=== PATIENT | female | born 1945 | race Caucasian/White ===

== ENCOUNTER → 2017-05-07 | Outpatient (CLI) | payer OTHER ==
[~2017-05-07] MED LIST: ALBUTEROL20 ml INH; ATENOLOL PO; BYSTOLIC10 MG PO; CATAPRES0.1 M1; CELEXA PO; CYMBALTA30 MG PO; DIAZEPAM PO; HYDROCHLOROTH12.5 M1 PO; HYDROCODON-ACE1 EAC9 PO; HYDROCODONE-APA1 T33 PO; LIPITOR PO; LISINOPRIL PO; MIDRIN CAPSULE1 CAP PO; NITROSTAT0.4 MG SL; NORVASC PO; OMEPRAZOLE40 M1 PO; PHENERGAN25 M1; POTASSIUM CHLO10 ME1 PO; PREDNISONE10 MG PO; TEMAZEPAM PO; TUDORZA PRESS400 MCG; VITAMIN B12 INJ; VITAMIN B650 MG; VITAMIN D250000 UNIT PO; WELLBUTRIN XL PO
--- NOTE | ~2017-05-07 | CT13 ---
[facility] A Service of [facility] & [facility] RADIOLOGY TEXT RESULTS PATIENT: MARLENA BRAMBILA LOCATION: [facility] : 49 UNIT #: [id number] AGE: [address]: Niles Paulino MD SEX: F ORDER DR: [id number] [facility] [address] [place], [place] [address] [id number] O MR#: [id number] [facility] #: [id number] NAME: MARLENA BRAMBILA. : 1945 SEX: F STUDY DATE/TIME: 05/07/2017 15:08 UNIT: [facility] ROOM: STUDY DESCRIPTION: CT Angio Abdomen Attending Physician: Niles Paulino M.D. Referring Physician: Niles Paulino M.D. Ordering Physician: Niles Paulino M.D. Primary Care Physician: Idalmis Asher A.P.R.N. MEDICAL IMAGING REPORT This report is preliminary unless electronic signature is present REVISED REPORT SEE ADDENDUM EXAM CT abdomen and angiographic reconstructions INDICATION Evaluate renal artery stenosis. Incontinence for 3-4 weeks. COMPARISON None. Comparison to a chest CT 08/19/2013. TECHNIQUE The patient given 100 mL of Isovue-370 and spiral imaging was performed through the abdomen. 3D obstructions of the arterial structures and aorta were generated. This CT exam was performed with one or more of the following radiation dose reduction techniques: Automatic exposure control, adjustment of mA and/or kV according to patient size, and iterative reconstruction. FINDINGS In the right lung bases. A lobular irregular 2.2 cm mass which has developed since 08/19/2013 and this is very suspicious for a primary malignancy of the lung. Please note there is a series of unenhanced images that were done before the contrasted study. There is also a set of 90-second delayed images. The liver, gallbladder, spleen, pancreas, adrenal glands and kidneys are normal except for 12 cyst in the left kidney. New small hiatal hernia. The aorta is normal in size. There is no adenopathy. The visualized bowel is normal. There are some degenerative in the lumbar spine. AORTA FINDINGS: The aorta is normal in size. The celiac artery and SMA are widely patent. There are single renal arteries bilaterally and there STS. [facility] A Service of [facility] & [facility] RADIOLOGY TEXT RESULTS PATIENT: MARLENA BRAMBILA LOCATION: [facility] : [birth year] UNIT #: [id number] AGE: [address]: Niles Paulino MD SEX: F ORDER DR: is no stenosis on the right. The left renal artery has a very mild narrowing of the proximal 1 cm. This is about a 25% diameter stenosis. IMPRESSION 1. There is a new 2.3 cm irregular mass in the right lower lobe strongly suspicious for primary malignancy of the lung. 2. Right a single renal arteries bilaterally. The right lung is normal. The left has mild narrowing approximately 1 cm. The narrowing is about 25%. 3. Otherwise, the study is negative. 4. I have placed a call Dr. Paulino's office and I am trying to communicate the results to him by phone. STAT * RESULT Dictated by... Avery Bonner M.D. THIS IS AN ELECTRONICALLY VERIFIED REPORT Avery Bonner M.D. at 05/08/2017 1:26 PM ALIZA/guzman TD: 05/08/2017 10:18 JOB #: [id number] ADDENDUM I discussed the findings with Dr. Paulino's nurse practitioner. Dictated by... Avery Bonner M.D. THIS IS AN ELECTRONICALLY VERIFIED REPORT Avery Bonner M.D. at 05/16/2017 6:03 AM ALIZA/aury TD: 05/08/2017 11:17 JOB #: [id number] CC: Taty/invision Please Delete MEDICAL IMAGING REPORT Page 1 of 1 COPY
[2017-05-07 22:35] LABS: POC - CREATININE 0.72 mg/dL (0.44-1.03); POC - GFR >60.0 mL/min (>60)
== END | disposition home or self-care (01) ==
LOC: CCAT 14:32
PROVIDERS: Surgery Vascular Surgery
DX: I70.1 Atherosclerosis of renal artery (principal); R91.8 Other nonspecific abnormal finding of lung field; J98.4 Other disorders of lung
CPT/HCPCS: 74175; 82565; Q9967

== ENCOUNTER → 2017-05-14 | Outpatient (CLI) | payer OTHER ==
--- NOTE | ~2017-05-14 | CT57 ---
[facility] A Service of [facility] & [facility] RADIOLOGY TEXT RESULTS PATIENT: MARLENA BRAMBILA [facility] : 47 UNIT #: [id number] AGE: [address]: Gene Disla MD SEX: F ORDER DR: [id number] [place] [id number] [facility] [place], [place] [address] [id number] O MR#: [id number] Acc #: [id number] NAME: MARLENA BRAMBILA : 1945 SEX: F STUDY DATE/TIME: 05/14/2017 14:47 UNIT: [facility] ROOM: STUDY DESCRIPTION: CT Chest Wo Cont Attending Physician: Gene Disla M.D. Referring Physician: Gene Disla M.D. Ordering Physician: Gene Disla M.D. Primary Care Physician: Idalmis Asher A.P.R.N. MEDICAL IMAGING REPORT This report is preliminary unless electronic signature is present EXAM CT chest without contrast INDICATIONS Pulmonary nodule followup. PROCEDURE Unenhanced CT of the chest. This CT exam was performed with one or more of the following radiation dose reduction techniques: automatic exposure control, adjustment of mA and/or kV according to patient size, and iterative reconstruction. COMPARISON 08/19/2013 FINDINGS There are new loculated nodules in the right lung. There is a 1.9 cm nodule posterior right lower lobe, a 1.9 cm nodule in the anterior right lower lobe, and a 1.5 cm nodule lateral right upper lobe. These are new compared with the previous study. There is a new mass along the posterior right perihilar region that measures up to 2.8 cm. This is inseparable from the posterior margin of the right hilar structures. No pathologically enlarged mediastinal nodes are seen. No acute findings in the included upper abdomen. Thyroid nodules not significantly changed from previous study. No aggressive appearing bone lesion. IMPRESSION 1. New posterior right perihilar mass measuring 2.8 cm suspicious for malignancy. There are 3 new nodules in the right lung as detailed above suspicious for pulmonary metastases. PET scan may be helpful in evaluating for the full extent of disease. If desired clinically. [facility] A Service of [facility] & [facility] RADIOLOGY TEXT RESULTS PATIENT: MARLENA BRAMBILA LOCATION: [facility] : 49 UNIT #: [id number] AGE: [address]: Gene Disla MD SEX: F ORDER DR: 2. 8 mm indeterminate high-attenuation lesion in the left kidney probably a proteinaceous or hemorrhagic cyst. Consider evaluation with renal protocol MRI or CT. Dictated by... Jesse Schumacher M.D. THIS IS AN ELECTRONICALLY VERIFIED REPORT Jesse Schumacher M.D. at 05/15/2017 3:29 PM Fermin TD: 05/14/2017 17:56 JOB #: [id number] MEDICAL IMAGING REPORT Page 1 of 1 COPY
== END | disposition home or self-care (01) ==
LOC: CCAT 14:05
DX: R91.1 Solitary pulmonary nodule (principal); R91.8 Other nonspecific abnormal finding of lung field
CPT/HCPCS: 71250

== ENCOUNTER → 2017-06-01 | Outpatient (CLI) | payer OTHER ==
[~2017-06-01] VITALS: Ht 162.6 cm; Wt 57.8 kg
--- NOTE | ~2017-06-01 | CR71 ---
[facility] A Service of [facility] RADIOLOGY TEXT RESULTS PATIENT: MARLENA BRAMBILA LOCATION: [facility] : 47 UNIT #: [id number] AGE: [address]: Gene Disla MD SEX: F ORDER DR: [id number] [facility] [address] [place], [place] [address] [id number] O MR#: [id number] Acc #: [id number] NAME: MARLENA BRAMBILA : 1945 SEX: F STUDY DATE/TIME: 06/01/2017 11:31 UNIT: [facility] ROOM: STUDY DESCRIPTION: CR Chest Single View Attending Physician: Gene Disla M.D. Ordering Physician: Dominic Hart M.D. Primary Care Physician: Idalmis Asher A.P.R.N. MEDICAL IMAGING REPORT This report is preliminary unless electronic signature is present EXAM AP portable chest. DATE 06/01/2017 HISTORY Stasis post right lung biopsy today with shortness of breath. Lung mass. COMPARISON PA and lateral chest radiograph 10/30/2008, CT-guided right lung mass biopsy 06/01/[address] chest without contrast 05/14/2017. FINDINGS Two right lung nodules are identified, one in the upper lobe, another in the lower lobe. A third nodule seen on the previous CT chest may be obscured by the cardiac silhouette. There is abnormal asymmetric enlargement and increased density in the right hilum consistent with mass lesion seen at that location on previous CT chest. Left lung remains clear. Heart size within normal limits. Left chest wall pacemaker is in place with leads extending into the expected location of the right atrium and right ventricle. There is no visible post biopsy pneumothorax. IMPRESSION 1. No visible pneumothorax status post right lung biopsy earlier today. 2. Right hilar mass and two dominant right lung nodules correspond to the CT chest findings of 05/14/2017. Dictated by... Zaynab Acosta M.D. [facility] A Service of [facility] RADIOLOGY TEXT RESULTS PATIENT: MARLENA BRAMBILA LOCATION: [facility] : 47 UNIT #: [id number] AGE: [address]: Gene Disla MD SEX: F ORDER DR: THIS IS AN ELECTRONICALLY VERIFIED REPORT Zaynab Acosta M.D. at 06/02/2017 8:56 AM JOSE/tobin TD: 06/01/2017 16:06 JOB #: [id number] MEDICAL IMAGING REPORT Page 1 of 1 COPY
--- NOTE | ~2017-06-01 | CT134 ---
[facility] A Service [facility] RADIOLOGY TEXT RESULTS PATIENT: MARLENA BRAMBILA LOCATION: [facility] : 49 UNIT #: [id number] AGE: [address]: Gene Disla MD SEX: F ORDER DR: [id number] [facility] [address] [place], [place] [address] [id number] O MR#: [id number] Acc #: [id number] NAME: MARLENA BRAMBILA : 1945 SEX: F STUDY DATE/TIME: 06/01/2017 9:32 UNIT: [facility] ROOM: STUDY DESCRIPTION: CT Guide Attending Physician: Gene Disla M.D. Ordering Physician: Gene Disla M.D. Primary Care Physician: Idalmis Asher A.P.R.N. MEDICAL IMAGING REPORT This report is preliminary unless electronic signature is present EXAM CT guided needle biopsy right lung mass, 06/01/2017 HISTORY Right lung masses TECHNIQUE This CT exam was performed with one or more of the following radiation dose reduction techniques: automatic exposure control, adjustment of mA and/or kV according to patient size, and iterative reconstruction. PROCEDURE Informed consent was obtained from the patient. Fentanyl and Versed were administered for IV conscious sedation with hemodynamic monitoring provided by the nursing staff throughout the procedure. Using CT guidance, an INRAD needle gun was used to obtain core specimens from a right posterior perihilar mass. Specimens were sent for pathologic evaluation. There was no immediate complication. The patient tolerated the procedure well. Total sedation time approximately [address]-guided core biopsy of a left perihilar lung mass. Conscious sedation as above. Dictated by... Dominic Hart M.D. THIS IS AN ELECTRONICALLY VERIFIED REPORT Dominic Hart M.D. at 06/05/2017 4:54 PM YASIR/aury TD: 06/01/2017 16:10 JOB #: [id number] [facility] A Service [facility] RADIOLOGY TEXT RESULTS PATIENT: MARLENA BRAMBILA LOCATION: [facility] #: [id number] : 49 UNIT #: [id number] AGE: [address]: Gene Disla MD SEX: F ORDER DR: MEDICAL IMAGING REPORT Page 1 of 1 COPY
[2017-06-01 08:29] LABS: HEMATOCRIT 40.9 % (35.0-45.0); MEAN CELL VOLUME 90.8 FL (83-96); MEAN CORPUSCULAR HGB CONC 34.1 g/dL (30-36); MEAN PLATELET VOLUME 7.2 FL (6.5-11.5); RED BLOOD COUNT 4.51 X10e (3.90-5.30); RED CELL DISTRIBUTION WIDTH 14.1 % (11.0-15.5); WHITE BLOOD COUNT 7.4 X10e3 (4.0-10.5)
[2017-06-01 08:47] LABS: INR 0.9; PARTIAL THROMBOPLASTIN TIME 26.8 SECONDS (23.5-31.3); PROTHROMBIN TIME (PATIENT) 10.1 SECONDS (10.0-11.7)
== END | disposition home or self-care (01) ==
LOC: CIVR 07:21
PROVIDERS: Internal Medicine
DX: C34.11 Malignant neoplasm of upper lobe, right bronchus or lung (principal); R91.8 Other nonspecific abnormal finding of lung field
CPT/HCPCS: 36415; 71010; 77012; 85027; 85610; 85730; 88305; 88341; 88342; 99152; 99153; J2250; J3010